=== PATIENT | male | born 1960 | race American Indian/Alaskan Native ===

== ENCOUNTER 2018-12-31 16:05 | Emergency (ER) | payer SELFPAY ==
--- NOTE | 2018-12-31 16:49 | Emergency Department Report ---
ED CPR HPI - General Stated Complaint: CARDIAC ARREST Time Seen by Provider: 12/31/18 16:47 - History of Present Illness Initial Comments: 58 yo M presents to ED in cardiac arrest. Family state patient was complaining of trouble breathing and then became unresponsive, so EMS was called. 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 States he has had several procedures, including recently, to try and dilate his airway. Upon EMS arrival, pt was apneic and pulseless. EMS had difficult time attempting to intubate, states no recognizable structures upon visualization, so Combitube was placed. Pt received epi x 3, sodium bicarb x 1. Rhythm of asystole entire time. ACLS ongoing for approx 25 minutes prior to ED arrival MD Complaint: found unresponsive Place: home Bystander CPR Performed: No Initial Findings in the Field: unresponsive, no respirations, other rhythm (asystole) ROSC in the Field: No Associated Symptoms: shortness of breath Treatments Prior to Arrival: other airway device (combitube), epinephrine mgs # (3), sodium bicarbonate (x1 dose) - Related Data Home Medications Medication Instructions Recorded Confirmed Last Taken Allopurinol 300 mg PO DAILY 03/05/18 03/05/18 Unknown Amlodipine Besylate/Benazepril 2 tab PO DAILY 03/05/18 03/05/18 Unknown [Amlodipine-Benazepril 5-10 mg] Levothyroxine [Synthroid] 75 mcg PO DAILY 03/05/18 03/05/18 Unknown Ranitidine HCl [Zantac] 300 mg PO BID 03/05/18 03/05/18 Unknown Previous Rx's Medication Instructions Recorded Last Taken Type Folic Acid [Folvite] 1 mg PO QDAY #30 tablet 04/04/18 Unknown Rx Furosemide [Lasix TAB] 40 mg PO QDAY #30 tablet 04/04/18 Unknown Rx Magnesium Oxide [Mag-Ox] 400 mg PO QDAY #5 tablet 04/04/18 Unknown Rx Thiamine [Vitamin B-1] 100 mg PO QDAY #30 tablet 04/04/18 Unknown Rx clonazePAM [KlonoPIN] 0.25 mg PO BID #10 tablet 04/04/18 Unknown Rx Allergies Allergy/AdvReac Type Severity Reaction Status Date / Time Penicillins Allergy Unknown Verified 03/05/18 03:15 ED Review of Systems ROS: Stated complaint: CARDIAC ARREST Other details as noted in HPI Comment: Unobtainable due to pts medical conditions Respiratory: shortness of breath ED Past Medical Hx - Past Medical History Hx Hypertension: Yes Hx Deep Vein Thrombosis: No Additional medical history: hypothyroidism - Surgical History Hx Pacemaker: No Hx Internal Defibrillator: No - Social History Smoking Status: Current Every Day Smoker - Medications Home Medications: Home Medications Medication Instructions Recorded Confirmed Last Taken Type Allopurinol 300 mg PO DAILY 03/05/18 03/05/18 Unknown History Amlodipine Besylate/Benazepril 2 tab PO DAILY 03/05/18 03/05/18 Unknown History [Amlodipine-Benazepril 5-10 mg] Levothyroxine [Synthroid] 75 mcg PO DAILY 03/05/18 03/05/18 Unknown History Ranitidine HCl [Zantac] 300 mg PO BID 03/05/18 03/05/18 Unknown History Folic Acid [Folvite] 1 mg PO QDAY #30 tablet 04/04/18 Unknown Rx Furosemide [Lasix TAB] 40 mg PO QDAY #30 tablet 04/04/18 Unknown Rx Magnesium Oxide [Mag-Ox] 400 mg PO QDAY #5 tablet 04/04/18 Unknown Rx Thiamine [Vitamin B-1] 100 mg PO QDAY #30 tablet 04/04/18 Unknown Rx clonazePAM [KlonoPIN] 0.25 mg PO BID #10 tablet 04/04/18 Unknown Rx ED Physical Exam - General General appearance: obese - Head Head exam: Present: atraumatic, normocephalic - Eye Eye exam: Present: normal appearance - ENT ENT exam: Present: mucous membranes moist - Neck Neck exam: Present: normal inspection - Respiratory Respiratory exam: Present: other (no spontaneous breaths) - Cardiovascular Cardiovascular Exam: Present: other (no palpable pulse) - GI/Abdominal GI/Abdominal exam: Present: soft, distended - Extremities Exam Extremities exam: Present: other (2+ pitting edema BLE) - Neurological Exam Neurological exam: Present: other (GCS=3) - Skin Skin exam: Present: warm, dry, intact, normal color - Cricothyrotomy Indications: significant oropharyngeal, rescue airway Patient Preparations: local not needed, sterile field applied, area cleansed wi antisept Technique Choice: surgical cricothyrotomy Surgical Technique: landmarks identified, vertical incision made w/ (10), tracheal hook used, dilator used to open and, tube inserted Tracheal Tube Size: 4 End Tidal CO2 Checked: positive Bilateral Breath Sounds: Yes Patient Tolerated Procedure: no complications Complications: bleeding - Intubation Laryngoscope: fiberoptic video scope ET Tube Size: 8 Intubation Complications: unable to intubate, surgical airway needed ED Medical Decision Making - Medical Decision Making 58 yo M in cardiac arrest for approx 25 min prior to arrival. Rhythm of asystole. Combitube placed by EMS, pt not oxygenating well, so intubation was attempted. Cirect laryngoscopy was initially attempted, however, posterior orophaynx edematous, no landmarks identifiable. Intubation was then attempted with video glidescope, however, still unable to identify structures, including vocal cords. At this point, pt has been in cardiac arrest for greater than 30 minutes. Extremely low chance of survival, however, decision was made to perform surgical airway. Cricothyroidotomy was done, however, no ROSC. Time of called at 16:38. Please see code sheet for further details. - Differential Diagnosis respiratory arrest, PE, MO, dissection Critical Care Time: Yes Critical care time in (mins) excluding proc time.: 35 Critical care attestation.: If time is entered above; I have spent that time in minutes in the direct care of this critically ill patient, excluding procedure time. Critical Care Time: 35 minutes ED Disposition Clinical Impression: Cardiac arrest, Airway obstruction Disposition: DC-[id number] Is pt being admited?: No Condition: Stable Referrals: GUCCI EGAN MD [Primary Care Provider] - 3-5 Days
[2018-12-31] MEDS ORDERED: ADRENALIN ONE (19:01)
== END 2018-12-31 19:17 ==
LOC: ED 16:05
DX: I46.9 Cardiac arrest, cause unspecified (principal)
CPT/HCPCS: 99285; J0171; 82962